=== PATIENT | male | born 1985 | race African-American/Black ===

== ENCOUNTER 2020-02-13 16:31 | Inpatient (IN) | payer OTHER ==
[2020-02-13 17:40] VITALS: BMI 23.1
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
[2020-02-13] MEDS ORDERED: cloNIDine HCL 0.1 MG TABLET PO PRN (18:58)
[2020-02-13] MEDS ORDERED: NICOTINE POLACRILEX 2 MG GUM BUC PRN (18:58)
[2020-02-13] MEDS ORDERED: METHOCARBAMOL 500 MG TABLET PO PRN (18:58)
[2020-02-13] MEDS ORDERED: MAG HYDROX/AL HYDROX/SIMETH 30 ML UNIT-DOSE CUP PO PRN (18:58)
[2020-02-13] MEDS ORDERED: ACETAMINOPHEN 325 MG TABLET (FP) PO PRN ×2 (18:58)
[2020-02-13] MEDS ORDERED: MAGNESIUM HYDROX 2400MG/30ML ORAL SUSPENSION 30 ML CUP PO PRN (18:58)
[2020-02-13] MEDS ORDERED: BISMUTH SUBSALICYLATE 524 MG/30 ML UD PO PRN (18:58)
[2020-02-13] MEDS ORDERED: chlordiazePOXIDE HCL 25 MG CAPSULE PO PRN (18:58)
[2020-02-13] MEDS ORDERED: MENTHOL/PHENOL 1 EACH UD MM PRN (18:58)
[2020-02-13] MEDS ORDERED: IBUPROFEN 400 MG TABLET (FP) PO PRN (18:58)
[2020-02-13] MEDS ORDERED: MAGNESIUM CITRATE 300 ML BOTTLE PO PRN (18:58)
[2020-02-13] MEDS ORDERED: METHADONE HCL 10 MG TABLET (FOR DETOX USE ONLY) PO ONE (20:00)
[2020-02-13] MEDS ORDERED: ONDANSETRON *ODT* 4 MG TABLET SL ONE (20:00)
--- NOTE | 2020-02-13 21:48 | PN ---
[facility] Progress Note Note: ASKED TO SEE CLIENT HE WAS ORDERED METHADONE TAPER AND UTOX IS NEG FOR OPIATES. SPOKE WITH CLIENT. HE STATES HE USES HEROIN QOD. LAST USE 1 DAY AGO. INFORMED CLIENT UTOX IS NEGATIVE FOR OPI AND WILL NOT RECEIVE MTD. WILL USE CLONIDINE TO MANAGE ANY RESIDUAL SX'S CLIENT REPORTS DAILY USE OF 1 PINT OF SOME SORT OF ALCOHOL- LIQUOR OR BEER DAILY. DENIES HX/O SEIZURES, BLACKOUTS. CLIENT AGREES TO LIBRIUM/ CLONIDINE PRN- MGMT Last Vital Signs Temp Pulse Resp BP Pulse Ox 97.7 F 80 18 113/66 100 02/13/20 20:18 02/13/20 20:18 02/13/20 20:18 02/13/20 20:18 02/13/20 20:18 Allergies Allergy/AdvReac Type Severity Reaction Status Date / Time peanut Allergy Verified 02/13/20 18:58 Nursing Admission data Admission Chemical Depend. Eval. Start: 02/13/20 16:31 Freq: ONCE Status: Complete Protocol: Document 02/13/20 20:31 CS5 (Rec: 02/13/20 20:34 CS5 [id number]) Substances of Abuse Cocaine Route Smoking Frequency Daily Amount used $100 Age of first use 23 Date of Last Use 02/12/20 Heroin Route Inhalation Frequency 3-6 times per week Amount used 5 bag Age of first use 23 Date of Last Use 02/12/20 Alcohol Route Oral Frequency Daily Amount used Liquor 2 pints Age of first use 14 Date of Last Use 02/12/20 Vital Signs Temp Pulse Resp BP Pulse Ox 02/13/20 20:18 97.7 F 80 18 113/66 100 02/13/20 19:27 98.1 F 81 18 117/67 02/13/20 17:38 98.1 F 81 18 117 Clinical Data Weight 75.296 kg Height 5 ft 11 in Status Does Not Wish to Execute Advanced Directive Status Follow-Up Refuses at this time Cardenas Fall Scale Score 15 Cardenas Fall Scale Risk Level Low Fall Risk Skin Risk Level Low Risk Safety Bracelet Applied Allergy (red) Smoking history Current every day smoker Aproximately how many cigarettes per day 10 Have you smoked in the past 12 months Yes Initiate information on smoking cessation No Visit Reason DETOX-HEZI Diet Start Label Display [facility] Regular ThuFeb 12 Dinner 1 Admission to Detox Unit Note Administrative * Received patient on unit from Patient [facility] for admission * Patient handbook dated and signed * Medication regimen, unit rules and length of stay explained; patient verbalized understanding Assessment * Patient is awake and oriented x 3: Yes * Signs and symptoms of withdrawal present: Yes: anxiety, chills, restless ness, GI irritability, headache/body aches * Patient search completed by SOLO Sosa Allergies Allergy/AdvReac Type Severity Reaction Status Date / Time peanut Allergy Verified 02/13/20 18:58 Nursing Admission data Admission Chemical Depend. Eval. Start: 02/13/20 16:31 Freq: ONCE Status: Complete Protocol: Document 02/13/20 20:31 CS5 (Rec: 02/13/20 20:34 CS5 [id number]) Substances of Abuse Cocaine Route Smoking Frequency Daily Amount used $100 Age of first use 23 Date of Last Use 02/12/20 Heroin Route Inhalation Frequency 3-6 times per week Amount used 5 bag Age of first use 23 Date of Last Use 02/12/20 Alcohol Route Oral Frequency Daily Amount used Liquor 2 pints Age of first use 14 Date of Last Use 02/12/20
[2020-02-13] MEDS ORDERED: hydrOXYzine PAMOATE 25 MG CAPSULE (FP) PO PRN (21:50)
[2020-02-13] MEDS ORDERED: hydrOXYzine PAMOATE 25 MG CAPSULE (FP) PO SCH (22:00)
[2020-02-13] MEDS: chlordiazePOXIDE HCL 25 MG CAPSULE PO SCH (22:56)
[2020-02-13] MEDS: MELATONIN 5 MG TABLETS PO SCH (22:57)
[2020-02-13] MEDS: PRENATAL VITAMINS W/ FOLIC ACID TABLET (FP) PO SCH (22:57)
[2020-02-13] MEDS: THIAMINE HCL 100 MG TABLET (FP) PO SCH (22:57)
[2020-02-13] MEDS: NICOTINE 7 MG/24 HOURS TOPICAL PATCH TD SCH (22:58)
[2020-02-14] MEDS: chlordiazePOXIDE HCL 25 MG CAPSULE PO SCH ×4 (06:24→22:09)
[2020-02-14] MEDS ORDERED: METHADONE (DETOX) 20 MG, METHADONE (DETOX) 5 MG PO ONE (10:00)
[2020-02-14 10:28] LABS: HEMATOCRIT 39.4 % (35.4-49); HEMOGLOBIN 12.3 GM/dL (11.7-16.9); MCH 24.2 pg (25.7-33.7); MCHC 31.3 g/dl (32.0-35.9); MEAN CELL VOLUME 77.6 fl (80-96); MEAN PLT VOLUME 8.7 fl (7.5-11.1); PLATELET COUNT 362 K/MM3 (134-434); RBC 5.08 M/mm3 (4.00-5.60); RDW 14.5 % (11.9-15.9)
[2020-02-14] MEDS: NICOTINE 7 MG/24 HOURS TOPICAL PATCH TD SCH (10:28)
[2020-02-14] MEDS: PRENATAL VITAMINS W/ FOLIC ACID TABLET (FP) PO SCH (10:28)
--- NOTE | 2020-02-14 10:39 | EKG ---
Test Reason : Blood Pressure : / mmHG Vent. Rate : 071 BPM Atrial Rate : 071 BPM P-R Int : 158 ms QRS Dur : 096 ms QT Int : 398 ms P-R-T Axes : 061 019 040 degrees QTc Int : 432 ms NORMAL SINUS RHYTHM NORMAL ECG NO PREVIOUS ECGS AVAILABLE Confirmed by Christiano Garcia MD ([id number]) on 02/14/2020 10:38:40 AM Referred By: Confirmed By:Christiano Garcia MD
[2020-02-14 10:41] LABS: BILIRUBIN,TOTAL 0.6 mg/dL (0.2-1); BLOOD UREA NITROGEN 8.4 mg/dL (7-18); CALCIUM 8.8 mg/dL (8.5-10.1); CREATININE 0.8 mg/dL (0.55-1.3); POTASSIUM 4.2 mmol/L (3.5-5.1); TOT PROT 6.7 g/dl (6.4-8.2)
[2020-02-14] MEDS ORDERED: PNEUMOC 13-VAL CONJ-DIP CRM/PF 0.5 ML DISP.SYRIN IM ONE (12:00)
[2020-02-14] MEDS ORDERED: PNEUMOCOCCAL 23 VACCINE 0.5 ML VIAL IM ONE (12:00)
--- NOTE | 2020-02-14 12:58 | PN ---
S CIWA - CIWA Score Nausea/Vomitin-Mild Nausea/No Vomiting Muscle Tremors: 1-None Visible, but [place] Anxiety: 2 Agitation: 1-Slight > Activity Paroxysmal Sweats: 1-Minimal Palms Moist Orientation: 1-Uncertain about Date Tacttile Disturbances: 1-Very Mild Itch/Numbness Auditory Disturbances: 0-None Visual Disturbances: 2-Mild Sensitivity Headache: 2-Mild CIWA-Ar Total Score: 12 [facility] Progress Note (SOAP) Subjective: 34 years old male was admitted on 02/13/20 for alcohol withdrawal sx management treating with librium detox regiment feels tired ate small amount of breakfast and lunch mbi 23.2 ensure 120 ml po tid with meals encourage nutrition and hygiene Objective: 02/14/20 12:59 Vital Signs - 24 hr 02/13/20 02/13/20 02/13/20 17:38 19:27 20:18 Temperature 98.1 F 98.1 F 97.7 F Pulse Rate 81 81 80 Respiratory 18 18 18 Rate Blood Pressure 117/67 117/67 113/66 O2 Sat by Pulse 100 Oximetry (%) 02/14/20 08:41 Temperature 97.7 F Pulse Rate 68 Respiratory 18 Rate Blood Pressure 93/56 L O2 Sat by Pulse Oximetry (%) Laboratory Tests 02/14/20 02/14/20 02/14/20 08:15 08:15 08:15 WBC 4.0 RBC 5.08 Hgb 12.3 Hct 39.4 MCV 77.6 L MCH 24.2 L MCHC 31.3 L RDW 14.5 Plt Count 362 MPV 8.7 Sodium 141 Potassium 4.2 Chloride 109 H Carbon Dioxide 27 Anion Gap 5 L BUN 8.4 Creatinine 0.8 Est GFR (CKD-EPI)AfAm 135.08 Est GFR (CKD-EPI)NonAf 116.55 Random Glucose 81 Calcium 8.8 Total Bilirubin 0.6 AST 14 L ALT 19 Alkaline Phosphatase 50 Total Protein 6.7 Albumin 3.0 L Syphilis Serology Non-reactive HIV Ag/Ab Combo Qual 02/14/20 08:15 WBC RBC Hgb Hct MCV MCH MCHC RDW Plt Count MPV Sodium Potassium Chloride Carbon Dioxide Anion Gap BUN Creatinine Est GFR (CKD-EPI)AfAm Est GFR (CKD-EPI)NonAf Random Glucose Calcium Total Bilirubin AST ALT Alkaline Phosphatase Total Protein Albumin Syphilis Serology HIV Ag/Ab Combo Qual Negative covid pending 02/14/20 13:00 Assessment: 02/14/20 13:00 alcohol withdrawal Plan: librium regiment
[2020-02-14] MEDS: MELATONIN 5 MG TABLETS PO SCH (22:10)
[2020-02-14] MEDS: THIAMINE HCL 100 MG TABLET (FP) PO SCH (22:10)
[2020-02-15] MEDS: chlordiazePOXIDE HCL 25 MG CAPSULE PO SCH ×2 (06:18→10:26)
--- NOTE | 2020-02-15 08:14 | PN ---
Teaching Attending Note Name of Resident: Madelin Miller ATTENDING PHYSICIAN STATEMENT I saw and evaluated the patient. I reviewed the resident's note and discussed the case with the resident. I agree with the resident's findings and plan as documented. SUBJECTIVE: OBJECTIVE: ASSESSMENT AND PLAN: Agree with resident's findings and plan for detox.
[2020-02-15] MEDS ORDERED: METHADONE HCL 10 MG TABLET (FOR DETOX USE ONLY) PO ONE (10:00)
[2020-02-15] MEDS: NICOTINE 7 MG/24 HOURS TOPICAL PATCH TD SCH (10:26)
[2020-02-15] MEDS: PRENATAL VITAMINS W/ FOLIC ACID TABLET (FP) PO SCH (10:26)
--- NOTE | 2020-02-15 12:50 | PN ---
[facility] CIWA - CIWA Score Nausea/Vomitin-Mild Nausea/No Vomiting Muscle Tremors: 2 Anxiety: 2 Agitation: 1-Slight > Activity Paroxysmal Sweats: No Perspiration Orientation: 0-Oriented Tacttile Disturbances: 0-None Auditory Disturbances: 0-None Visual Disturbances: 2-Mild Sensitivity Headache: 2-Mild CIWA-Ar Total Score: 10 [facility] Progress Note (SOAP) Subjective: 34 years old male was admitted on 02/13/20 for alcohol withdrawal sx management treating with librium detox regiment ate breakfast and lunch in room tolerate food and ensure supplement well
--- NOTE | 2020-02-15 13:07 | DS ---
[facility] Detox Discharge Summary Admission Date: 02/13/20 Discharge Date: 02/15/20 - History Present History: Alcohol Dependence Additional Comments: 34 years old male was admitted on 02/13/20 for alcohol withdrawal sx management treating with librium detox regiment ate breakfast and lunch in room tolerate food and ensure supplement well requests for methadone abbie negative opiate urine tox upon admission mr vallejo insists to leave the detox today due to "my lost the baby" mr vallejo is alert oriented x 3 steady gaits denies suicial no homocidal no self destructive behavior mr vallejo declined aftercare due to mr vallejo plan travel out of state in the near future General Appearance: Yes: No Apparent Distress, Appropriately Dressed Respiratory: Yes: Normal Breath Sounds, No Respiratory Distress, No Accessory Muscle Use Abdominal: Yes: Within Normal Limits, Flat Musculoskeletal: Yes: Within Normal Limits Extremities: Yes: Normal Range of Motion Pertinent Past History: time for discharge 40 minutes treatment team met with mr cortes discussing benefits of librium completion mr cortes insists to leave with one male peer today - Physical Exam Results Vital Signs: Vital Signs Temperature 97.8 F 02/15/20 08:37 Pulse Rate 60 02/15/20 08:37 Respiratory Rate 18 02/15/20 08:37 Blood Pressure 101/61 02/15/20 08:37 O2 Sat by Pulse Oximetry (%) 100 02/15/20 06:21 Pertinent Admission Physical Exam Findings: alcohol withdrawal Laboratory Tests 02/13/20 02/14/20 02/14/20 19:00 08:15 08:15 WBC 4.0 RBC 5.08 Hgb 12.3 Hct 39.4 MCV 77.6 L MCH 24.2 L MCHC 31.3 L RDW 14.5 Plt Count 362 MPV 8.7 Sodium 141 Potassium 4.2 Chloride 109 H Carbon Dioxide 27 Anion Gap 5 L BUN 8.4 Creatinine 0.8 Est GFR (CKD-EPI)AfAm 135.08 Est GFR (CKD-EPI)NonAf 116.55 Random Glucose 81 Calcium 8.8 Total Bilirubin 0.6 AST 14 L ALT 19 Alkaline Phosphatase 50 Total Protein 6.7 Albumin 3.0 L Syphilis Serology COVID-19 (ELENA) Not detected HIV Ag/Ab Combo Qual 02/14/20 02/14/20 08:15 08:15 WBC RBC Hgb Hct MCV MCH MCHC RDW Plt Count MPV Sodium Potassium Chloride Carbon Dioxide Anion Gap BUN Creatinine Est GFR (CKD-EPI)AfAm Est GFR (CKD-EPI)NonAf Random Glucose Calcium Total Bilirubin AST ALT Alkaline Phosphatase Total Protein Albumin Syphilis Serology Non-reactive COVID-19 (ELENA) HIV Ag/Ab Combo Qual Negative lab noted - Treatment Hospital Course: Detox Protocol Followed, Detoxed Safely, Responded well, Discharged Condition Good, Rehab Referral Accepted Patient has Accepted a Rehab Referral to: community [facility] - Medication Discharge Medications: Ambulatory Orders NK [No Known Home Medication] 02/13/20 - Diagnosis (1) Substance induced mood disorder Status: Suspected (2) Alcohol dependence with uncomplicated withdrawal Status: Acute (3) Nicotine dependence Status: Acute Qualifiers: Nicotine product type: cigarettes Substance use status: in withdrawal Qualified Code(s): F17.213 - Nicotine dependence, cigarettes, with withdrawal - AMA Did Patient Leave Against Medical Advice: No CIWA Score - CIWA Score Nausea/Vomitin-Mild Nausea/No Vomiting Muscle Tremors: 2 Anxiety: 2 Agitation: 1-Slight > Activity Paroxysmal Sweats: No Perspiration Orientation: 0-Oriented Tacttile Disturbances: 0-None Auditory Disturbances: 0-None Visual Disturbances: 2-Mild Sensitivity Headache: 0-None Present CIWA-Ar Total Score: 8
[2020-02-15 13:15] VITALS: BP 115/74; PULSE 83; TEMP 97.3
[2020-02-16] MEDS ORDERED: chlordiazePOXIDE HCL 10 MG CAPSULE PO PRN
[2020-02-16] MEDS ORDERED: chlordiazePOXIDE HCL 10 MG CAPSULE PO SCH (05:00)
[2020-02-16] MEDS ORDERED: METHADONE (DETOX) 10 MG, METHADONE (DETOX) 5 MG PO ONE (10:00)
[2020-02-17] MEDS ORDERED: chlordiazePOXIDE HCL 10 MG CAPSULE PO SCH (05:00)
[2020-02-17] MEDS ORDERED: METHADONE HCL 10 MG TABLET (FOR DETOX USE ONLY) PO ONE (10:00)
[2020-02-18] MEDS ORDERED: chlordiazePOXIDE HCL 10 MG CAPSULE PO ONE (05:00)
[2020-02-18] MEDS ORDERED: METHADONE HCL 5 MG TABLET (FOR DETOX USE ONLY) PO ONE (06:00)
== END 2020-02-15 13:22 | disposition home or self-care (01) | DRG 773 ==
LOC: YASAS 16:31 → Y3N 19:42
PROVIDERS: ADMIT Allergy & Immunology; ATTEND Allergy & Immunology
PROC: HZ2ZZZZ Detoxification Services for Substance Abuse Treatment (ICD-10-PCS; principal; 2020-02-13)
DX: F10.230 Alcohol dependence with withdrawal, uncomplicated (principal); F11.23 Opioid dependence with withdrawal; F14.20 Cocaine dependence, uncomplicated; F17.210 Nicotine dependence, cigarettes, uncomplicated; D57.3 Sickle-cell trait; Z56.0 Unemployment, unspecified; Z59.0 Homelessness; Z91.010 Allergy to peanuts
CPT/HCPCS: 36415; 80053; 85027; 86780; 87389; 93005; 93010; U0003

== ENCOUNTER 2021-06-18 11:04 | Inpatient (IN) | payer OTHER ==
[2021-06-18] MEDS ORDERED: MAGNESIUM HYDROX 2400MG/30ML ORAL SUSPENSION 30 ML CUP PO PRN (11:23)
[2021-06-18] MEDS ORDERED: ONDANSETRON *ODT* 4 MG TABLET SL PRN (11:23)
[2021-06-18] MEDS ORDERED: BISMUTH SUBSALICYLATE 262 MG/15 ML BTL PO PRN (11:23)
[2021-06-18] MEDS ORDERED: methaDONE HCL 10 MG TABLET (FOR DETOX USE ONLY) PO ONE (11:23)
[2021-06-18] MEDS ORDERED: MENTHOL/PHENOL 1 EACH UD MM PRN (11:23)
[2021-06-18] MEDS ORDERED: MAGNESIUM CITRATE 300 ML BOTTLE PO PRN (11:23)
[2021-06-18] MEDS ORDERED: cloNIDine HCL 0.1 MG TABLET PO PRN (11:23)
[2021-06-18] MEDS ORDERED: MAG HYDROX/AL HYDROX/SIMETH 30 ML UNIT-DOSE CUP PO PRN (11:23)
[2021-06-18] MEDS ORDERED: IBUPROFEN 400 MG TABLET (FP) PO PRN (11:23)
[2021-06-18] MEDS ORDERED: ACETAMINOPHEN 325 MG TABLET (FP) PO PRN ×2 (11:23)
[2021-06-18 11:27] VITALS: BMI 22.3
[2021-06-18] MEDS: NICOTINE 14 MG/24 HOURS TOPICAL PATCH TD SCH (15:24)
[2021-06-18] MEDS: PRENATAL VITAMINS W/ FOLIC ACID TABLET (FP) PO SCH (15:32)
[2021-06-18] MEDS: hydrOXYzine PAMOATE 25 MG CAPSULE (FP) PO SCH ×3 (15:32→22:34)
[2021-06-18 15:48] LABS: BLOOD UREA NITROGEN 10.7 mg/dL (7-18); CALCIUM 8.6 mg/dL (8.5-10.1)
[2021-06-18 15:49] LABS: ALBUMIN 3.4 g/dl (3.4-5.0)
[2021-06-18 15:53] LABS: BILIRUBIN,TOTAL 0.8 mg/dL (0.2-1)
[2021-06-18 16:11] LABS: HEMOGLOBIN 12.4 GM/dL (11.7-16.9); MCH 23.6 pg (25.7-33.7); MEAN CELL VOLUME 76.3 fl (80-96); MEAN PLT VOLUME 8.6 fl (7.5-11.1); PLATELET COUNT 345 10^3/uL (134-434); RBC 5.24 M/mm3 (4.00-5.60); RDW 14.2 % (11.9-15.9); WHITE BLOOD COUNT 5.4 K/mm3 (4.0-10.0)
[2021-06-18] MEDS ORDERED: MELATONIN 5 MG TABLETS PO SCH (22:00)
[2021-06-18] MEDS: THIAMINE HCL 100 MG TABLET (FP) PO SCH (22:33)
[2021-06-18] MEDS: METHOCARBAMOL 500 MG TABLET PO PRN (22:34)
[2021-06-19] MEDS: hydrOXYzine PAMOATE 25 MG CAPSULE (FP) PO SCH ×5 (05:42→22:33)
[2021-06-19] MEDS: METHOCARBAMOL 500 MG TABLET PO PRN ×2 (05:56→22:36)
[2021-06-19] MEDS ORDERED: methaDONE HCL 10 MG TABLET (FOR DETOX USE ONLY) ONE (08:53)
[2021-06-19] MEDS: NICOTINE 14 MG/24 HOURS TOPICAL PATCH TD SCH (10:22)
[2021-06-19] MEDS: NICOTINE 10 MG CARTRIDGE (INHALER) IH PRN ×2 (10:23→18:08)
[2021-06-19] MEDS: PRENATAL VITAMINS W/ FOLIC ACID TABLET (FP) PO SCH (10:25)
[2021-06-19] MEDS: traZODone HCL 50 MG TABLET (FP) PO SCH (22:33)
[2021-06-19] MEDS: THIAMINE HCL 100 MG TABLET (FP) PO SCH (22:33)
[2021-06-20] MEDS: hydrOXYzine PAMOATE 25 MG CAPSULE (FP) PO SCH ×5 (06:31→22:33)
[2021-06-20] MEDS: NICOTINE 10 MG CARTRIDGE (INHALER) IH PRN ×3 (07:30→13:18)
[2021-06-20] MEDS ORDERED: methaDONE HCL 10 MG TABLET (FOR DETOX USE ONLY) PO ONE (10:00)
[2021-06-20] MEDS: NICOTINE 14 MG/24 HOURS TOPICAL PATCH TD SCH (10:04)
[2021-06-20] MEDS: PRENATAL VITAMINS W/ FOLIC ACID TABLET (FP) PO SCH (10:04)
[2021-06-20] MEDS: METHOCARBAMOL 500 MG TABLET PO PRN (10:04)
[2021-06-20] MEDS ORDERED: COLLOIDAL OATMEAL 1 BAR EACH TP PRN (11:06)
[2021-06-20] MEDS: MINERAL OIL/PETROLAT/WATER TOPICAL CREAM 113 GM JAR TP SCH ×2 (13:15→22:33)
[2021-06-20] MEDS: traZODone HCL 50 MG TABLET (FP) PO SCH (22:33)
[2021-06-20] MEDS: THIAMINE HCL 100 MG TABLET (FP) PO SCH (22:33)
[2021-06-21] MEDS: hydrOXYzine PAMOATE 25 MG CAPSULE (FP) PO SCH ×5 (06:00→23:03)
[2021-06-21] MEDS ORDERED: methaDONE HCL 10 MG TABLET (FOR DETOX USE ONLY) ONE (09:54)
[2021-06-21] MEDS: MINERAL OIL/PETROLAT/WATER TOPICAL CREAM 113 GM JAR TP SCH ×2 (10:07→23:05)
[2021-06-21] MEDS: PRENATAL VITAMINS W/ FOLIC ACID TABLET (FP) PO SCH (10:07)
[2021-06-21] MEDS: NICOTINE 14 MG/24 HOURS TOPICAL PATCH TD SCH (10:07)
[2021-06-21] MEDS: METHOCARBAMOL 500 MG TABLET PO PRN (10:08)
[2021-06-21] MEDS: NICOTINE 10 MG CARTRIDGE (INHALER) IH PRN ×3 (10:10→23:05)
[2021-06-21] MEDS: THIAMINE HCL 100 MG TABLET (FP) PO SCH (23:03)
[2021-06-21] MEDS: traZODone HCL 50 MG TABLET (FP) PO SCH (23:04)
[2021-06-22] MEDS: NICOTINE 10 MG CARTRIDGE (INHALER) IH PRN ×2 (05:46→10:57)
[2021-06-22] MEDS: hydrOXYzine PAMOATE 25 MG CAPSULE (FP) PO SCH ×5 (07:36→22:47)
[2021-06-22] MEDS ORDERED: methaDONE HCL 10 MG TABLET (FOR DETOX USE ONLY) PO ONE (10:00)
[2021-06-22] MEDS: METHOCARBAMOL 500 MG TABLET PO PRN (10:54)
[2021-06-22] MEDS: PRENATAL VITAMINS W/ FOLIC ACID TABLET (FP) PO SCH (10:54)
[2021-06-22] MEDS: MINERAL OIL/PETROLAT/WATER TOPICAL CREAM 113 GM JAR TP SCH ×2 (10:55→22:43)
[2021-06-22] MEDS: NICOTINE 14 MG/24 HOURS TOPICAL PATCH TD SCH (10:56)
[2021-06-22] MEDS: THIAMINE HCL 100 MG TABLET (FP) PO SCH (22:19)
[2021-06-22] MEDS: traZODone HCL 50 MG TABLET (FP) PO SCH (22:20)
[2021-06-23] MEDS: hydrOXYzine PAMOATE 25 MG CAPSULE (FP) PO SCH ×2 (06:59→09:48)
[2021-06-23 09:43] VITALS: BP 133/67; PULSE 59; TEMP 96.9
[2021-06-23] MEDS: METHOCARBAMOL 500 MG TABLET PO PRN (09:48)
[2021-06-23] MEDS: PRENATAL VITAMINS W/ FOLIC ACID TABLET (FP) PO SCH (09:48)
[2021-06-23] MEDS: NICOTINE 10 MG CARTRIDGE (INHALER) IH PRN (09:49)
[2021-06-23] MEDS: NICOTINE 14 MG/24 HOURS TOPICAL PATCH TD SCH (09:51)
[2021-06-23] MEDS: MINERAL OIL/PETROLAT/WATER TOPICAL CREAM 113 GM JAR TP SCH (09:52)
== END 2021-06-23 10:09 | disposition other institution (70) | DRG 773 ==
LOC: YASAS 11:04 → Y6N 13:28
PROVIDERS: ADMIT Allergy & Immunology; ATTEND Allergy & Immunology
PROC: HZ2ZZZZ Detoxification Services for Substance Abuse Treatment (ICD-10-PCS; principal; 2021-06-18)
DX: F11.23 Opioid dependence with withdrawal (principal); F14.20 Cocaine dependence, uncomplicated; F17.210 Nicotine dependence, cigarettes, uncomplicated; F19.282 Other psychoactive substance dependence with psychoactive substance-induced sleep disorder; F43.10 Post-traumatic stress disorder, unspecified; D57.3 Sickle-cell trait; Z62.810 Personal history of physical and sexual abuse in childhood; Z59.02 Unsheltered homelessness; Z56.0 Unemployment, unspecified; Z91.010 Allergy to peanuts
CPT/HCPCS: 36415; 80053; 85027; 86780; C9803-CS; U0003; U0005